=== PATIENT | female | born 1930 | race Caucasian/White ===

== ENCOUNTER 2019-01-30 18:47 | Inpatient (IN) ==
[2019-01-30] MEDS ORDERED: CEFAZOLIN 1000MG 1,000 MG/7.5 ML SYR IV STA (19:03)
[2019-01-30] MEDS ORDERED: DOXYCYCLINE HYCLATE 100 MG CAP PO STA (19:03)
[2019-01-30 19:24] LABS: Basophils # (auto) 0.03 K/uL (0-0.2); Basophils % (auto) 0.4 %; Eosinophils # (auto) 0.23 K/uL (0-0.5); Eosinophils % (auto) 3.1 %; Hematocrit (blood only) 37.9 % (37-47); Hemoglobin 12.1 g/dL (12.0-16.0); Immature Granulocytes # (auto) 0.02 K/uL (0.00-0.02); Immature Granulocytes % (auto) 0.3 %; Lymphocytes % (auto) 22.7 %; Mean Corpuscular Hgb Conc 31.9 g/dL (32-36); Mean Platelet Volume 8.7 fL (7.4-10.4); Monocytes # (auto) 0.91 K/uL (0.11-0.59); Monocytes % (auto) 12.1 %; Neutrophils % (auto) 61.4 %; Platelet Count 245 K/uL (130-400); RDW Coefficient of Variation 14.9 % (11.5-14.5); RDW Standard Deviation 54.5 fL (36.4-46.3); Red Blood Count 3.79 M/uL (4.2-5.4); White Blood Count 7.49 K/uL (4.8-10.8)
--- NOTE | 2019-01-30 19:39 | XRay Report ---
XR elbow RT min 3V routine CLINICAL HISTORY: Right elbow pain. COMPARISON STUDY: None. FINDINGS: No fracture or dislocation. No cortical destruction to suggest an osteomyelitis. No signifi cant elbow effusion. Scattered soft tissue calcifications are noted. There is soft tissue swelling at the olecranon with subcutaneous gas. IMPRESSION: Soft tissue swelling at the olecranon with subcutaneous gas . In the absence of recent t rauma this is concerning for an infection from a gas-forming organism and may represent a necrotizing fasciitis. Surgical consultation recommended. Electronically signed by: Eduardo Hills M.D. 01/30/2019 7:37 PM
[2019-01-30 19:53] LABS: Albumin Globulin Ratio 0.9 (0.9-2); Albumin Level 3.6 gm/dl (3.4-5.0); BUN Creatinine Ratio 18.2 (10-20); Bilirubin,Total 0.6 mg/dl (0.2-1); Calcium 9.4 mg/dl (8.5-10.1); Creatinine Clr Calc Pharmacy 30.9 ml/min; Est GFR (African American) 51.2; Est GFR (Non-African American) 44.1; Globulin 4.2 gm/dl (2.5-4.0); Total Protein 7.8 gm/dl (6.4-8.2)
[2019-01-30 20:21] LABS: Potassium 4.4 mmol/L (3.5-5.1)
[2019-01-30] MEDS ORDERED: PIPERACILLIN/TAZOBACTAM 4.5 GM in DEXTROSE 5% 100 ML IV STA ×2 (21:14→23:16)
[2019-01-30] MEDS ORDERED: VANCOMYCIN HCL 1,500 MG in SODIUM CHLORIDE 0.9% 500 ML IV ONE (21:14)
[2019-01-30] MEDS ORDERED: PIPERACILL/TAZOBAC CONSULT ACTIVE PRN ×2 (21:14→23:16)
[2019-01-30] MEDS ORDERED: VANCOMYCIN CONSULT ACTIVE PRN ×2 (21:14→23:16)
--- NOTE | 2019-01-30 22:30 | Emergency Department Note ---
Entered by Alex Rothman acting as a scribe for Alicja Brantley MD History of Present Illness General Chief complaint: Infection, Wound Stated complaint: RT ELBOW PAIN, POSSIBLY INFECTED Source: patient and family History of Present Illness Provider complaint: Right elbow welling Onset (ago): week(s) Location: upper extremity and right Pain Consistency: + constant Maximum Pain Intensity: 3 Relieved By: + none Associated symptoms: + denies other symptoms (pain) and + other (drainage, redness, swelling); no fever/chills Treatments prior to arrival: none The patient is an 88 year old female who presents to the Emergency Room with complaints of right elbow swelling that began 1 weeks ago. The patient states she fell 4 weeks ago and started noticing some redness and swelling approximately 1 week ago. The patient's family member, who was bed-side adds that the patient was seen at [facility] shortly prior to arrival. She states that the elbow was drained at that time and the fluid was clear/yellow. The patient denies any pain to the elbow and fevers. The patient notes that she has a history of HTN. Home Medications Home Medications Medication Instructions Recorded Confirmed Type Calcium 600 + D(3) 1 cap PO DAILY 01/30/19 01/30/19 History Lactobacillus acidophilus 10,000 mmu cells PO DAILY 01/30/19 01/30/19 History [Acidophilus] PreserVision AREDS 2 tab PO BID 01/30/19 01/30/19 History amlodipine [Norvasc] 10 mg PO DAILY 01/30/19 01/30/19 History aspirin [Aspirin Low Dose] 81 mg PO DAILY 01/30/19 01/30/19 History celecoxib [Celebrex] 100 mg PO DAILY 01/30/19 01/30/19 History esomeprazole magnesium [Nexium] 40 mg PO BID 01/30/19 01/30/19 History fenofibrate 150 mg PO DAILY 01/30/19 01/30/19 History gabapentin 600 mg PO DAILY 01/30/19 01/30/19 History ranitidine HCl 150 mg PO DAILY 01/30/19 01/30/19 History simvastatin 20 mg PO HS 01/30/19 01/30/19 History telmisartan-hydrochlorothiazid 1 tab PO DAILY 01/30/19 01/30/19 History tolterodine 4 mg PO DAILY 01/30/19 01/30/19 History clindamycin HCl 300 mg PO QID 6 Days #48 cap 01/31/19 Rx Allergies Allergy/AdvReac Type Severity Reaction Status Date / Time No Known Allergies Allergy Unverified 01/30/19 19:59 Past Med/Surg History Medical History Hypertension Social History Preferred Language: French Communication Ability: Effective 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 and A total of 10 systems reviewed and were otherwise negative Physical Exam Vital Signs Vital Signs - 24 hr 01/30/19 18:49 01/30/19 22:16 01/30/19 23:41 Temperature 36.6 C 36.5 C Temperature Source Oral Oral Sepsis Recent Fever Within 48 Hours No Sepsis New/Unexplained Change in Mental Status No Sepsis Action Taken by Nursing No Action Required Pulse Rate 84 Pulse Rate [Left Finger] 89 91 H Respiratory Rate 20 16 18 Respiratory Effort / Characteristics Non-Labored Spontaneous Non-Labored Spontaneous Respiratory Depth Normal Normal Respiratory Pattern Regular Regular Blood Pressure 137/79 Blood Pressure [Left Arm] 114/39 L 147/71 H Blood Pressure Mean 98 Blood Pressure Mean [Left Arm] 64 96 Blood Pressure Position [Left Arm] Lying Pulse Oximetry 98 99 95 Oxygen Delivery Method Room Air Room Air 01/31/19 07:25 01/31/19 07:33 01/31/19 14:29 Temperature 36.7 C 36.7 C Temperature Source Oral Sepsis Recent Fever Within 48 Hours Sepsis New/Unexplained Change in Mental Status Sepsis Action Taken by Nursing Pulse Rate Pulse Rate [Left Finger] 84 84 Respiratory Rate 18 18 Respiratory Effort / Characteristics Respiratory Depth Respiratory Pattern Blood Pressure Blood Pressure [Left Arm] 127/58 L 127/58 L Blood Pressure Mean Blood Pressure Mean [Left Arm] 81 Blood Pressure Position [Left Arm] Lying Pulse Oximetry 93 93 Oxygen Delivery Method Room Air Room Air 01/31/19 15:36 Temperature 36.7 C Temperature Source Sepsis Recent Fever Within 48 Hours Sepsis New/Unexplained Change in Mental Status Sepsis Action Taken by Nursing Pulse Rate Pulse Rate [Left Finger] 84 Respiratory Rate 18 Respiratory Effort / Characteristics Respiratory Depth Respiratory Pattern Blood Pressure Blood Pressure [Left Arm] 127/58 L Blood Pressure Mean Blood Pressure Mean [Left Arm] Blood Pressure Position [Left Arm] Pulse Oximetry 93 Oxygen Delivery Method Vital signs reviewed. General: Well-appearing elderly female, in no significant distress. HEENT: No scleral icterus, PERRLA, neck supple. Atraumatic. Cardiovascular: Regular rate and rhythm, no extra sounds. Pulmonary: Clear to auscultation bilaterally, normal work of breathing. Abdomen: Soft, nontender, nondistended, positive bowel sounds. Musculoskeletal: Atraumatic, no peripheral edema. Approximately 12 cm erythematous region on the extensor surface. with a pinpoint region of clear drainage, no pain with ROM, supination and pronation non-tender. Neurologic: Patient awake alert and oriented x 3 Skin: Warm, dry, erythematous right elbow as described above. Course 1856: The patient was evaluated in room C04. A complete history and physical exam was performed. 2026: The patient's CRP are elevated. 2109: [facility] He will evaluate the patient for further management. Administered Medications Discontinued Medications Amlodipine Besylate (Norvasc) 10 mg PO DAILY JOSE Stop: 03/02/19 08:59 Last Admin: 01/31/19 07:55 Dose: 10 mg Documented by: [id number] Doxycycline Hyclate (Vibramycin) 100 mg PO NOW [facility] [[email or web address] Stop: 01/30/19 19:04 Last Admin: 01/30/19 19:30 Dose: 100 mg Documented by: [id number] Fenofibrate (Tricor) 145 mg PO DAILY JOSE Stop: 03/02/19 08:59 Last Admin: 01/31/19 07:57 Dose: 145 mg Documented by: [id number] Gabapentin (Neurontin) 600 mg PO DAILY JOSE Stop: 03/02/19 08:59 Last Admin: 01/31/19 07:56 Dose: 600 mg Documented by: [id number] Hydrochlorothiazide (Hctz) 12.5 mg PO DAILY JOSE Stop: 03/02/19 08:59 Last Admin: 01/31/19 07:54 Dose: 12.5 mg Documented by: [id number] Cefazolin Sodium (Ancef 1000mg) 1,000 mg in 7.5 mls @ 2.5 mls/min IV NOW STA Stop: 01/30/19 19:05 Last Admin: 01/30/19 19:30 Dose: 2.5 mls/min Documented by: [id number] Piperacillin Sod/Tazobactam (Sod 4.5 gm/ Dextrose) 120 mls @ 30 mls/hr IV Q8H STA Stop: 01/31/19 01:13 Last Infusion: 01/31/19 01:11 Dose: 0 mls/hr Documented by: [id number] Admin: 01/30/19 21:57 Dose: 30 mls/hr Documented by: [id number] Vancomycin HCl 1,500 mg/ (Sodium Chloride) 530 mls @ 200 mls/hr IV NOW ONE Stop: 01/30/19 23:52 Last Infusion: 01/31/19 01:07 Dose: 0 mls/hr Documented by: [id number] Admin: 01/30/19 21:57 Dose: 200 mls/hr Documented by: [id number] Clindamycin Phosphate 600 mg/ (Dextrose) 54 mls @ 100 mls/hr IV Q8H [facility] Stop: 02/10/19 00:00 Last Infusion: 01/31/19 09:00 Dose: 0 mls/hr Documented by: [id number] Admin: 01/31/19 08:04 Dose: 100 mls/hr Documented by: [id number] Infusion: 01/31/19 01:41 Dose: 0 mls/hr Documented by: [id number] Admin: 01/31/19 01:08 Dose: 100 mls/hr Documented by: [id number] Sodium Chloride (Nss 1000ml) 1,000 mls @ 75 mls/hr IV .[id number] [facility] Stop: 03/01/19 23:15 Last Infusion: 01/31/19 13:43 Dose: 0 mls/hr Documented by: [id number] Infusion: 01/31/19 06:04 Dose: 75 mls/hr Documented by: [id number] Admin: 01/30/19 23:56 Dose: 75 mls/hr Documented by: [id number] Piperacillin Sod/Tazobactam (Sod 3.375 gm/ Dextrose) 115 mls @ 28.75 mls/hr IV Q8H [facility]; Protocol Stop: 02/10/19 03:59 Last Admin: 01/31/19 11:27 Dose: 28.8 mls/hr Documented by: [id number] Infusion: 01/31/19 08:45 Dose: 0 mls/hr Documented by: [id number] Admin: 01/31/19 04:17 Dose: 28.8 mls/hr Documented by: [id number] Dextrose/Sodium Chloride (D5w And 1/2nss) 1,000 mls @ 50 mls/hr IV .Q20H JOSE Stop: 03/02/19 12:59 Last Admin: 01/31/19 13:41 Dose: 50 mls/hr Documented by: [id number] Lactobacillus Acidophilus (Floranex) 4 tab PO DAILY JOSE Stop: 03/02/19 08:59 Last Admin: 01/31/19 07:54 Dose: 4 tab Documented by: [id number] Miscellaneous (Order Awaiting Action) 1 ea N/A QS JOSE Stop: 03/02/19 07:59 Last Admin: 01/31/19 07:52 Dose: Not Given Documented by: [id number] Multivitamins/Minerals (Caltrate Plus) 1 tab PO DAILY JOSE Stop: 03/02/19 08:59 Last Admin: 01/31/19 07:52 Dose: 1 tab Documented by: [id number] Pantoprazole Sodium (Protonix) 40 mg PO BID JOSE Stop: 03/02/19 08:59 Last Admin: 01/31/19 07:56 Dose: 40 mg Documented by: [id number] Ranitidine HCl (Zantac) 150 mg PO DAILY JOSE Stop: 03/02/19 08:59 Last Admin: 01/31/19 07:57 Dose: 150 mg Documented by: [id number] Telmisartan (Micardis) 80 mg PO DAILY JOSE Stop: 03/02/19 08:59 Last Admin: 01/31/19 07:55 Dose: 80 mg Documented by: [id number] Tolterodine Tartrate (Detrol La) 4 mg PO DAILY [facility] Stop: 03/02/19 08:59 Last Admin: 01/31/19 07:53 Dose: 4 mg Documented by: [id number] Medical Decision Making Differential Diagnosis Differential diagnosis: Etiologies such as cellulitis, abscess, MRSA infection, DVT, necrotizing fasciitis, dermatitis, drug eruption, as well as others were entertained. Medical Records Attestation: I reviewed the patient's medical records. Home Medications Current Medication List: was personally reviewed by me Laboratory Data Attestation: I reviewed the patient's lab results. Result diagrams: 01/31/19 05:11 01/31/19 05:11 Lab Results 01/30/19 01/30/19 01/30/19 Range/Units 19:16 19:16 19:16 WBC 7.49 (4.8-10.8) K/uL RBC 3.79 L (4.2-5.4) M/uL Hgb 12.1 (12.0-16.0) g/dL Hct 37.9 (37-47) % MCV 100.0 (80-100) fL MCH 31.9 (25-34) pg MCHC 31.9 L (32-36) g/dL RDW Std Deviation 54.5 H (36.4-46.3) fL RDW Coeff of Max 14.9 H (11.5-14.5) % Plt Count 245 (130-400) K/uL MPV 8.7 (7.4-10.4) fL Immature Gran % (Auto) 0.3 % Neut % (Auto) 61.4 % Lymph % (Auto) 22.7 % [place] % (Auto) 12.1 % Eos % (Auto) 3.1 % Baso % (Auto) 0.4 % Immature Gran # (Auto) 0.02 (0.00-0.02) K/uL Neut # (Auto) 4.60 (1.4-6.5) K/uL Lymph # (Auto) 1.70 (1.2-3.4) K/uL [place] # (Auto) 0.91 H (0.11-0.59) K/uL Eos # (Auto) 0.23 (0-0.5) K/uL Baso # (Auto) 0.03 (0-0.2) K/uL ESR 49 H (0-21) mm/hr Sodium 139 (136-145) mmol/L Potassium 4.4 (3.5-5.1) mmol/L Chloride 100 (98-107) mmol/L Carbon Dioxide 31 (21-32) mmol/L Anion Gap 8.0 (3-11) BUN 20 H (7-18) mg/dl Creatinine 1.12 (0.6-1.2) mg/dl Est Cr Clr Drug Dosing 30.9 ml/min Est GFR ( Amer) 51.2 Est GFR (Non-Af Amer) 44.1 BUN/Creatinine Ratio 18.2 (10-20) Glucose 94 (70-99) mg/dl Calcium 9.4 (8.5-10.1) mg/dl Magnesium (1.8-2.4) mg/dl Total Bilirubin 0.6 (0.2-1) mg/dl AST 21 (15-37) U/L ALT 19 (12-78) U/L Alkaline Phosphatase 66 (45-117) U/L C-Reactive Protein (0-0.29) mg/dl Total Protein 7.8 (6.4-8.2) gm/dl Albumin 3.6 (3.4-5.0) gm/dl Globulin 4.2 H (2.5-4.0) gm/dl Albumin/Globulin Ratio 0.9 (0.9-2) 01/30/19 01/31/19 01/31/19 Range/Units 19:16 05:11 05:11 WBC 4.97 (4.8-10.8) K/uL RBC 3.07 L (4.2-5.4) M/uL Hgb 9.6 L (12.0-16.0) g/dL Hct 30.0 L (37-47) % MCV 97.7 (80-100) fL MCH 31.3 (25-34) pg MCHC 32.0 (32-36) g/dL RDW Std Deviation 53.3 H (36.4-46.3) fL RDW Coeff of Max 14.9 H (11.5-14.5) % Plt Count 190 (130-400) K/uL MPV 8.8 (7.4-10.4) fL Immature Gran % (Auto) 0.2 % Neut % (Auto) 61.4 % Lymph % (Auto) 22.1 % [place] % (Auto) 10.3 % Eos % (Auto) 5.6 % Baso % (Auto) 0.4 % Immature Gran # (Auto) 0.01 (0.00-0.02) K/uL Neut # (Auto) 3.05 (1.4-6.5) K/uL Lymph # (Auto) 1.10 L (1.2-3.4) K/uL [place] # (Auto) 0.51 (0.11-0.59) K/uL Eos # (Auto) 0.28 (0-0.5) K/uL Baso # (Auto) 0.02 (0-0.2) K/uL ESR (0-21) mm/hr Sodium 138 (136-145) mmol/L Potassium 3.9 (3.5-5.1) mmol/L Chloride 107 (98-107) mmol/L Carbon Dioxide 26 (21-32) mmol/L Anion Gap 5.0 (3-11) BUN 20 H (7-18) mg/dl Creatinine 1.04 (0.6-1.2) mg/dl Est Cr Clr Drug Dosing 33.2 ml/min Est GFR ( Amer) 55.9 Est GFR (Non-Af Amer) 48.3 BUN/Creatinine Ratio 19.2 (10-20) Glucose 129 H (70-99) mg/dl Calcium 8.2 L (8.5-10.1) mg/dl Magnesium 2.4 (1.8-2.4) mg/dl Total Bilirubin (0.2-1) mg/dl AST (15-37) U/L ALT (12-78) U/L Alkaline Phosphatase (45-117) U/L C-Reactive Protein 9.76 H (0-0.29) mg/dl Total Protein (6.4-8.2) gm/dl Albumin (3.4-5.0) gm/dl Globulin (2.5-4.0) gm/dl Albumin/Globulin Ratio (0.9-2) Imaging Data Radiologist's Impression: Radiology results as stated below per my review and th e radiologist's interpretation: XR elbow RT min 3V routine CLINICAL HISTORY: Right elbow pain. COMPARISON STUDY: None. FINDINGS: No fracture or dislocation. No cortical destruction to suggest an osteomyelitis. No significant elbow effusion. Scattered soft tissue calcifications are noted. There is soft tissue swelling at the olecranon with subcutaneous gas. IMPRESSION: Soft tissue swelling at the olecranon with subcutaneous gas . In the absence of recent trauma this is concerning for an infection from a gas- forming organism and may represent a necrotizing fasciitis. Surgical consultation recommended. Electronically signed by: Eduardo Hills M.D. 01/30/2019 7:37 PM Blood Pressure Blood Pressure Findings: Normal blood pressure MDM Narrative This patient was evaluated and appeared to be in no significant distress. IV access was obtained and laboratory work was drawn. Patient has a normal white blood cell count, elevated sed rate and CRP. Patient was initially medicated with IV Ancef and oral doxycycline. X-ray of the right elbow was performed and reveals subcutaneous gas, concerning for necrotizing fasciitis. The patient had a right shoulder replacement 3 weeks ago. Given the benign clinical picture however concerning images, case was discussed with Dr. Lange of orthopedic surgery. There is clinical concern for seeding of the right shoulder as well as the less likely scenario of necrotizing fasciitis. It was decided that expanded antibiotic coverage would be given, IV Zosyn and vancomycin. Observation with internal medicine was requested an orthopedic consultation. Patient was made aware of the plan and agrees. Impression & Plan Cellulitis of right elbow Discharge Plan Visit Data *Final* Discharge Date/Time: 01/30/19 22:49 Chief Complaint: Infection, Wound Stated Complaint: RT ELBOW PAIN, POSSIBLY INFECTED ED Provider: Alicja Brantley Discharge Problem: Cellulitis of right elbow Patient Disposition: Admitted As Inpatient Condition: Good Discharge Instructions Interventions: ED Discharge Assessment Last Done: 01/30/19 22:49 The scribe's documentation has been prepared under my direction and personally reviewed by me in its entirety. I confirm that the note above accurately reflects all work, treatment, procedures, and medical decision making performed by me.
[2019-01-30] MEDS ORDERED: NON-FORMULARY MEDICATION (Diphenhydramine-Acetaminophen [Tylenol Pm Extra Strength] 2 TAB) PO PRN (23:16)
[2019-01-30] MEDS ORDERED: ACETAMINOPHEN 325 MG TAB PO PRN (23:16)
[2019-01-30] MEDS ORDERED: VANCOMYCIN HCL 1,000 MG in SODIUM CHLORIDE 0.9% 250 ML IV SCH (23:16)
[2019-01-30] MEDS ORDERED: SODIUM CHLORIDE 0.9% 1000ML 1,000 ML IV SCH (23:16)
[2019-01-30] MEDS ORDERED: ONDANSETRON INJ 2 MG/ML 2 ML VIAL IV PRN (23:16)
[2019-01-31] MEDS: CLINDAMYCIN 600 MG in DEXTROSE 5% 50 ML IV SCH ×2 (01:08→08:04)
[2019-01-31] MEDS: PIPERACILLIN/TAZOBACTAM 3.375 GM in DEXTROSE 5% 100 ML IV SCH ×2 (04:17→11:27)
[2019-01-31 05:24] LABS: Basophils # (auto) 0.02 K/uL (0-0.2); Basophils % (auto) 0.4 %; Eosinophils # (auto) 0.28 K/uL (0-0.5); Eosinophils % (auto) 5.6 %; Hemoglobin 9.6 g/dL (12.0-16.0); Immature Granulocytes # (auto) 0.01 K/uL (0.00-0.02); Immature Granulocytes % (auto) 0.2 %; Lymphocytes % (auto) 22.1 %; Mean Corpuscular Volume 97.7 fL (80-100); Mean Platelet Volume 8.8 fL (7.4-10.4); Monocytes # (auto) 0.51 K/uL (0.11-0.59); Monocytes % (auto) 10.3 %; Neutrophils # (auto) 3.05 K/uL (1.4-6.5); Neutrophils % (auto) 61.4 %; Platelet Count 190 K/uL (130-400); RDW Coefficient of Variation 14.9 % (11.5-14.5); RDW Standard Deviation 53.3 fL (36.4-46.3); Red Blood Count 3.07 M/uL (4.2-5.4); White Blood Count 4.97 K/uL (4.8-10.8)
[2019-01-31 05:42] LABS: BUN Creatinine Ratio 19.2 (10-20); Calcium 8.2 mg/dl (8.5-10.1); Creatinine Clr Calc Pharmacy 33.2 ml/min; Est GFR (African American) 55.9; Est GFR (Non-African American) 48.3; Magnesium 2.4 mg/dl (1.8-2.4); Potassium 3.9 mmol/L (3.5-5.1)
--- NOTE | 2019-01-31 05:42 | History and Physical Report ---
DATE OF ADMISSION: 01/30/2019 CHIEF COMPLAINT: Right elbow infection. HISTORY OF PRESENT ILLNESS: This is an 88-year-old female with past medical history significant for hypertension, hyperlipidemia and gastroesophageal reflux disease who presents with right elbow infection. The patient is coming from [place] to visit her daughter. She is going to stay whole summer. About 4 weeks ago, she fell on her right elbow. It hurt a little and she did not give much notice to it and 3 weeks ago she had same side right shoulder replacement surgery, which was done in [place] and she came to visit her daughter. For the last few days, her right elbow seems to be getting more swollen, red and more painful and also some drainage coming from it. So, she went to [facility] and they sent her here and here imaging study, an elbow x-ray was done in the Emergency Room which showed probably a soft tissue swelling in the olecranon with subcutaneous gas. In the absence of recent trauma, this is concerning for infection from gas forming organism and may represent necrotizing fasciitis. Surgical consultation was recommended. The Emergency Room talked to the Orthopedics and was advised to keep her n.p.o. after midnight and will be evaluated in the morning.Patient is afebrile with no chills. Denies any other complaints, resting comfortably and hemodynamically stable. No leukocytosis. Denies any headache. No blurred vision. No earache. 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 No headache. No earache. No runny nose. No sore throat. No difficulty swallowing. Appetite is good. Sleeps okay. No chest pain. No shortness of breath. No cough. No nausea. No abdominal pain. Normal bowel and bladder movements. No melena or hematochezia. No hematuria. No swelling of the legs. No rash. Denies any easy bruising or easy bleeding. She ambulates with the help of a walker. ALLERGIES: No known drug allergies. PAST MEDICAL HISTORY: As mentioned above. PAST SURGICAL HISTORY: She has had bilateral knee replacement surgery, right shoulder replacement surgery and tonsillectomy. MEDICATIONS: The patient is on amlodipine 10 mg p.o. daily, ascorbic acid 500 mg p.o. b.i.d., aspirin 81 mg p.o. daily, calcium and vitamin D 1 tablet daily, Celebrex 100 mg p.o. daily, cyanocobalamin B12 250 mcg p.o. daily, Tylenol PM 2 tablets p.o. at bedtime p.r.n., diphenoxylate, atropine 1 tablet p.o. q.i.d., Nexium 40 mg p.o. b.i.d., fenofibrate 150 mg p.o. daily, gabapentin 600 mg p.o. daily, lactobacillus 1 tablet daily, magnesium 600 mg p.o. t.i.d., omega 3 fish oil 1 capsule daily, ranitidine 150 mg p.o. daily, simvastatin 20 mg p.o. q.p.m., telmisartan hydrochlorothiazide 1 tablet daily, tolterodine 4 mg p.o. daily and PreserVision AREDAS 2 tablets p.o. daily. FAMILY HISTORY: Noncontributory. SOCIAL HISTORY: Currently living with her daughter. She is from [place]. REVIEW OF SYMPTOMS: As per HPI. Rest of review of systems negative. PHYSICAL EXAMINATION: GENERAL: The patient is old and frail, not in acute distress. VITAL SIGNS: Temperature 36.6, pulse 84, respiratory rate 20, blood pressure 137/79 and oxygen 98% room air. HEENT: No pallor. No icterus. Pupils are equal, round and reactive to light. NECK: No JVD. No neck masses. No carotid bruits. CARDIOVASCULAR: S1, S2 heard. Regular rate and rhythm. No murmur. No gallop. RESPIRATORY SYSTEM: Normal AP diameter. No accessory muscle use. No wheezing. No crackles. ABDOMEN: Soft. Bowel sounds present. Nontender. No distention. CENTRAL NERVOUS SYSTEM: Cranial nerves II through XII grossly intact. Nonfocal. EXTREMITIES: Right elbow is somewhat swollen and erythematous. LABORATORY DATA: WBC 7.4, hemoglobin 12.1, hematocrit 37.9 and platelets 245. ESR 49. Sodium 139, potassium 4.4, chloride 100, bicarbonate 21, BUN 20, creatinine 1.1, serum glucose 94, calcium 9.4, total bilirubin 0.6, AST 21, ALT 19 and alkaline phosphatase of 66. C-reactive protein 0.76. Elbow x-ray, soft tissue swelling of the olecranon with subcutaneous gas, with absence of recent trauma, this is concerning for infection with gas forming organism and may represent necrotizing fasciitis. Surgical consultation is recommended. ASSESSMENT AND PLAN: This is an 88-year-old female who presents with right elbow infection. 1. Right elbow infection: The patient states she fell 4 weeks ago. She did not notice much about it, but last few days it started getting more swollen and also draining. X-ray showed there is some soft tissue swelling at the olecranon with subcutaneous gas, possible necrotizing fasciitis. Orthopedics was notified, to keep her n.p.o. after midnight for procedure in the a.m. We will treat with empiric antibiotics, I.V. vancomycin, Zosyn, I.V. clindamycin. Follow the cultures and closely monitor. We will get a chest x-ray and electrocardiogram. The patient has no cardiac history, walks with a walker. If the EKG and chest x-ray will be okay, the patient should be at acceptable risk to proceed with any procedure. 2. History of hypertension: We will continue amlodipine and telmisartan hydrochlorothiazide for now. Monitor blood pressure. 3. History of hyperlipidemia: Continue statin. 4. History of gastroesophageal reflux disease: Continue with Nexium and Zantac. 5. Deep venous thrombosis prophylaxis: Sequential compression devices for now. 6. Disposition: Closely monitor on medical floor. Level 1 full code. Physical Therapy and Occupational Therapy prior to discharge. Social Service to help with discharge planning. [facility]
[2019-01-31 07:39] VITALS: BP 127/58; PULSE 84; TEMP 98.1; O2SAT 93
--- NOTE | 2019-01-31 07:51 | XRay Report ---
XR chest 1V portable HISTORY: 88 years-old Female pre op preoperative exam. No acute chest complaints COMPARISON: None available TECHNIQUE: Portable AP view of the chest FINDINGS: Cardiomediastinal and hilar silhouettes are within normal limits. Calcification of the thoracic aorti c arch. No pneumothorax, large pleural effusion or overt pulmonary edema. Mild interstitial coarsenin g, possibly chronic. Multiple remote healed and ununited fractures about the right ribs. Degenerative changes of the spine and left shoulder. Right shoulder total joint arthroplasty. IMPRESSION: No acute process. The above report was generated using voice recognition software. It may contain grammatical, syntax o r spelling errors. Electronically signed by: Kendrick Mcgregor M.D. 01/31/2019 7:50 AM
[2019-01-31] MEDS ORDERED: hydroCHLOROthiazide 25 MG TAB PO SCH (09:00)
[2019-01-31] MEDS ORDERED: MAGNESIUM 600 MG PO SCH (09:00)
[2019-01-31] MEDS ORDERED: LACTOBACILLUS ACIDOPHILUS (FLORANEX) TAB PO SCH (09:00)
[2019-01-31] MEDS ORDERED: TELMISARTAN 40 MG TAB PO SCH (09:00)
[2019-01-31] MEDS ORDERED: CALCIUM 600MG + VIT D 400 IU TAB PO SCH (09:00)
[2019-01-31] MEDS ORDERED: FENOFIBRATE NANOCRYSTALLIZED 145 MG TABLET PO SCH (09:00)
[2019-01-31] MEDS ORDERED: GABAPENTIN 600 MG TAB PO SCH (09:00)
[2019-01-31] MEDS ORDERED: AMLODIPINE BESYLATE 5 MG TAB PO SCH (09:00)
[2019-01-31] MEDS ORDERED: ASCORBIC ACID 500 MG TAB PO SCH (09:00)
[2019-01-31] MEDS ORDERED: TOLTERODINE TARTRATE LA 4 MG CAPCR PO SCH (09:00)
[2019-01-31] MEDS ORDERED: PANTOprazole 40 MG TAB PO SCH (09:00)
[2019-01-31] MEDS ORDERED: D5W AND 1/2NSS 1,000 ML IV SCH (13:00)
--- NOTE | 2019-01-31 14:32 | Orthopedic Consultation ---
Date of Consultation January 31, 2019 Assessment & Plan (1) Olecranon bursitis of right elbow: This point time patient is basically asymptomatic this is a nonemergent or even urgent problem. The best course of action is to simply observe and we could always excise the bursa at any time. Really no need for hospital admission for this. I recommend she follow-up with us in the office in anywhere from 2-3 days for another evaluation if he gets worse we can always remove it electively as an outpatient procedure. The patient and the daughter who are present very happy with the conversation and thats the plan they would like to proceed with. Thank you for the consultation. History of Present Illness Reason for Consultation: Right elbow evaluation Attending Physician: Brayan Keen MD History of Present Illness Pleasant 88-year-old female who bumped her elbow about a month ago has been having some off-and-on swelling of her right elbow and has never been painful the last 10-12 days had a small area that open had some drainage off and on but has never had any pain fevers or chills. She had some slight pink coloration to but never had fire engine red of the arm or the elbow itself. For whatever reason she was admitted to the hospital for this problem and we are consulted for right elbow evaluation. Allergies Allergy/AdvReac Type Severity Reaction Status Date / Time No Known Allergies Allergy Unverified 01/30/19 19:59 Home Medications Home Medications Medication Instructions Recorded Confirmed Type Lactobacillus acidophilus 10,000 mmu cells PO DAILY 01/30/19 01/30/19 History [Acidophilus] amlodipine [Norvasc] 10 mg PO DAILY 01/30/19 01/30/19 History aspirin [Aspirin Low Dose] 81 mg PO DAILY 01/30/19 01/30/19 History calcium carbonate-vitamin D3 1 cap PO DAILY 01/30/19 01/30/19 History [Calcium 600 + D(3)] celecoxib [Celebrex] 100 mg PO DAILY 01/30/19 01/30/19 History esomeprazole magnesium [Nexium] 40 mg PO BID 01/30/19 01/30/19 History fenofibrate 150 mg PO DAILY 01/30/19 01/30/19 History gabapentin 600 mg PO DAILY 01/30/19 01/30/19 History ranitidine HCl 150 mg PO DAILY 01/30/19 01/30/19 History simvastatin 20 mg PO HS 01/30/19 01/30/19 History telmisartan-hydrochlorothiazid 1 tab PO DAILY 01/30/19 01/30/19 History tolterodine 4 mg PO DAILY 01/30/19 01/30/19 History vitamins A,C,Z-[id number] 2 tab PO BID 01/30/19 01/30/19 History [PreserVision AREDS] Patient History Medical History Hypertension Social History Preferred Language: Kazakh Communication Ability: Effective Die Engraver Required: No Beliefs That Will Affect Care: None marital status: / Current Living Situation: Family Current Living Situation Comment: son Feels Safe at Home: Yes Safety Concerns: Feels Safe At This Time Smoking Status: Former smoker Hx Alcohol Use: Yes Alcohol type: wine Hx Substance Use: No Physical Exam Musculoskeletal: Right elbow has full range of motion she has no erythema present at this point time she does have a small pinhole area present of the olecranon bursa. Results & Data Vital Signs (Past 12 Hours) Vital Signs Temp Pulse Resp BP Pulse Ox 01/31/19 07:25 36.7 C 84 18 127/58 L 93
--- NOTE | 2019-01-31 15:16 | Hospitalist Progress Note ---
Date of Service January 31, 2019 Assessment & Plan (1) Olecranon bursitis of right elbow: Olecranon bursitis of right elbow possible right elbow infection(local infection of the skin and subcutaneous tissue) Patient has discharge instructions to go to orthopedic clinic on Thursday02/02/19 for most likely diagnosis as Olecranon bursitis of right elbow and orthopedic service recommended hospital discharge -Patient was given IV antibiotics of Vancomycin, Zosyn, clindamycin in the hospital because of concern for concern of Right elbow infection (local infection of the skin and subcutaneous tissue) X-ray showed there is some soft tissue swelling at the olecranon with subcutaneous gas Patient does not have fever or elevated white blood cell count to suggest a necrotizing fasciitis, patient should take clindamycin 300 mg four times a day for 6 more days starting on 02/01/19 in case there is an underlying infection and clindamycin has MRSA coverage -Patient should establish with a primary care doctor. Patient still has pending blood culture results and preliminary wound culture of Staph (but Staph may also be part of normal skin nellie) -Patient is stable medically for hospital discharge and outpatient follow up -Patient's family provided contact numbers as [phone] and [phone] in case any pertinent culture results that may change medical management of left elbow hypertension -blood pressure controlled at this time -continue amlodipine and telmisartan- hydrochlorothiazide as outpatient History of hyperlipidemia -Continue statin History of gastroesophageal reflux disease -Continue with Nexium and Zantac. Discharge diagnosis Olecranon bursitis of right elbow possible right elbow infection(local infection of the skin and subcutaneous tissue) Hypertension Subjective Patient's right elbow with fluctuance. She was seen by orthopedics and no recommendations for drainage to be done in the hospital. Patient denies fever. no chills. no vomiting. no abdomen pain. tolerating diet Physical Exam Constitutional: WD/WN, vitals as above Eyes: PERRL, conjunctivae normal, anicteric sclerae EOM intact bilaterally ENMT: external ear and nose normal, oropharynx normal Ears: + hearing impairment Neck: trachea midline, no thyromegaly normal visual inspection Respiratory: normal respiratory effort, lungs clear to auscultation Cardiovascular: RRR, no murmur, no edema Gastrointestinal (Abdomen): normal bowel sounds, soft, nontender, no hepatosplenomegaly Musculoskeletal: Extremities: + elbow/forearm abnormality (right elbow fluctuance, no acute drainage.) Neurologic: PERRL, EOMI, accommodation nl, no face palsy, no dysarthria CN's II-XI intact bilaterally Psychiatric: A+Ox3, euthymic affect Results & Data Vital Signs (Past 12 Hours) Vital Signs Temp Pulse Resp BP Pulse Ox 01/31/19 14:29 36.7 C 84 18 127/58 L 93 01/31/19 07:25 36.7 C 84 18 127/58 L 93
--- NOTE | 2019-01-31 15:44 | Discharge Summary ---
Date of Service January 31, 2019 Admission HPI Per Admitting Provider CHIEF COMPLAINT: Right elbow infection. HISTORY OF PRESENT ILLNESS: This is an 88-year-old female with past medical history significant for hypertension, hyperlipidemia and gastroesophageal reflux disease who presents with right elbow infection. The patient is coming from [place] to visit her daughter. She is going to stay whole summer. About 4 weeks ago, she fell on her right elbow. It hurt a little and she did not give much notice to it and 3 weeks ago she had same side right shoulder replacement surgery, which was done in [place] and she came to visit her daughter. For the last few days, her right elbow seems to be getting more swollen, red and more painful and also some drainage coming from it. So, she went to [facility] and they sent her here and here imaging study, an elbow x-ray was done in the Emergency Room which showed probably a soft tissue swelling in the olecranon with subcutaneous gas. In the absence of recent trauma, this is concerning for infection from gas forming organism and may represent necrotizing fasciitis. Surgical consultation was recommended. The Emergency Room talked to the Orthopedics and was advised to keep her n.p.o. after midnight and will be evaluated in the morning.Patient is afebrile with no chills. Denies any other complaints, resting comfortably and hemodynamically stable. No leukocytosis. Denies any headache. No blurred vision. No earache. 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 No headache. No earache. No runny nose. No sore throat. No difficulty swallowing. Appetite is good. Sleeps okay. No chest pain. No shortness of breath. No cough. No nausea. No abdominal pain. Normal bowel and bladder movements. No melena or hematochezia. No hematuria. No swelling of the legs. No rash. Denies any easy bruising or easy bleeding. She ambulates with the help of a walker. Admission Exam Per Admitting Provider GENERAL: The patient is old and frail, not in acute distress. VITAL SIGNS: Temperature 36.6, pulse 84, respiratory rate 20, blood pressure 137/79 and oxygen 98% room air. HEENT: No pallor. No icterus. Pupils are equal, round and reactive to light. NECK: No JVD. No neck masses. No carotid bruits. CARDIOVASCULAR: S1, S2 heard. Regular rate and rhythm. No murmur. No gallop. RESPIRATORY SYSTEM: Normal AP diameter. No accessory muscle use. No wheezing. No crackles. ABDOMEN: Soft. Bowel sounds present. Nontender. No distention. CENTRAL NERVOUS SYSTEM: Cranial nerves II through XII grossly intact. Nonfocal. EXTREMITIES: Right elbow is somewhat swollen and erythematous. Principal Diagnosis Olecranon bursitis of right elbow possible right elbow infection(local infection of the skin and subcutaneous tissue) Hypertension Discharge Exam Constitutional WD/WN, vitals as above Eyes PERRL, conjunctivae normal, anicteric sclerae EOM intact bilaterally ENMT external ear and nose normal, oropharynx normal Neck trachea midline, no thyromegaly normal visual inspection Respiratory normal respiratory effort, lungs clear to auscultation Cardiovascular RRR, no murmur, no edema Gastrointestinal (Abdomen) normal bowel sounds, soft, nontender, no hepatosplenomegaly Musculoskeletal Extremities: + elbow/forearm abnormality (right elbow fluctuance, no acute drainage.) Neurologic PERRL, EOMI, accommodation nl, no face palsy, no dysarthria CN's II-XI intact bilaterally Psychiatric A+Ox3, euthymic affect Discharge Data Allergies Allergy/AdvReac Type Severity Reaction Status Date / Time No Known Allergies Allergy Unverified 01/30/19 19:59 Consultations 01/30/19 21:12 Consult Orthopedic Surgery Stat ED Decision to Admit Stat 01/30/19 23:16 Consult Case Management - Discharge Planning Routine 01/30/19 23:32 Consult Orthopedic Surgery Routine Hospital Course (1) Olecranon bursitis of right elbow: Olecranon bursitis of right elbow possible right elbow infection(local infection of the skin and subcutaneous tissue) Patient has discharge instructions to go to orthopedic clinic on Thursday02/02/19 for most likely diagnosis as Olecranon bursitis of right elbow and orthopedic service recommended hospital discharge -Patient was given IV antibiotics of Vancomycin, Zosyn, clindamycin in the hospital because of concern for concern of Right elbow infection (local infection of the skin and subcutaneous tissue) X-ray showed there is some soft tissue swelling at the olecranon with subcutaneous gas Patient does not have fever or elevated white blood cell count to suggest a necrotizing fasciitis, patient should take clindamycin 300 mg four times a day for 6 more days starting on 02/01/19 in case there is an underlying infection and clindamycin has MRSA coverage -Patient should establish with a primary care doctor. Patient still has pending blood culture results and preliminary wound culture of Staph (but Staph may also be part of normal skin nellie) -Patient is stable medically for hospital discharge and outpatient follow up -Patient's family provided contact numbers as [phone] and [phone] in case any pertinent culture results that may change medical management of left elbow hypertension -blood pressure controlled at this time -continue amlodipine and telmisartan- hydrochlorothiazide as outpatient History of hyperlipidemia -Continue statin History of gastroesophageal reflux disease -Continue with Nexium and Zantac. Discharge diagnosis Olecranon bursitis of right elbow possible right elbow infection(local infection of the skin and subcutaneous tissue) Hypertension Total Time Total Time Spent Total Time Spent (In Minutes): 40 minutes Total Time Includes: Examination of the Patient, Discharge Planning, Medication Reconciliation and Communication With Other Providers Discharge Plan Discharge Items Patient Disposition: Home - Self-Care Reason For Visit: RIGHT ELBOW INFECTION Discharge Diagnosis: possible right elbow infection(local infection of the skin and subcutaneous tissue), Olecranon bursitis of right elbow, Hypertension Condition: Good Discharge Goals: Improve disease control Activity: Resume your previous activity Non-emergency contact: Primary Care Provider and Surgeon Call non-emergency contact if: you have any medication questions Follow-up/Referrals: PCP,NO [Primary Care Provider] - Diet: Regular Addtl Provider Instructions: Patient has discharge instructions to go to orthopedic clinic on Thursday02/02/19 for most likely diagnosis as Olecranon bursitis of right elbow and orthopedic service recommended hospital discharge Patient was given IV antibiotics of Vancomycin, Zosyn, clindamycin in the hospital because of concern for concern of Right elbow infection (local infection of the skin and subcutaneous tissue) X-ray showed there is some soft tissue swelling at the olecranon with subcutaneous gas Patient does not have fever or elevated white blood cell count to suggest a necrotizing fasciitis, patient should take clindamycin 300 mg four times a day for 6 more days starting on 02/01/19 in case there is an underlying infection and clindamycin has MRSA coverage Patient should establish with a primary care doctor. Patient still has pending blood culture results and preliminary wound culture of Staph (but Staph may also be part of normal skin nellie) Patient is stable medically for hospital discharge and outpatient follow up Patient's family provided contact numbers as [phone] and [phone] in case any pertinent culture results that may change medical management of left elbow Prescriptions: New clindamycin HCl 150 mg Capsule 300 mg PO QID 6 Days Qty: 48 RF: 0 Continued gabapentin 600 mg tablet 600 mg PO DAILY RF: 0 tolterodine 4 mg capsule,extended release 24hr 4 mg PO DAILY RF: 0 aspirin [Aspirin Low Dose] 81 mg Tablet,Delayed Release (Dr/Ec) 81 mg PO DAILY RF: 0 amlodipine [Norvasc] 10 mg Tablet 10 mg PO DAILY RF: 0 simvastatin 20 mg Tablet 20 mg PO HS RF: 0 telmisartan-hydrochlorothiazid 80-12.5 mg tablet 1 tab PO DAILY RF: 0 ranitidine HCl 150 mg Capsule 150 mg PO DAILY RF: 0 Lactobacillus acidophilus [Acidophilus] Capsule 10,000 mmu cells PO DAILY RF: 0 celecoxib [Celebrex] 100 mg Capsule 100 mg PO DAILY RF: 0 esomeprazole magnesium [Nexium] 20 mg Capsule,Delayed Release(Dr/Ec) 40 mg PO BID RF: 0 Calcium 600 + D(3) 600 mg calcium- 200 unit Capsule 1 cap PO DAILY RF: 0 fenofibrate 150 mg Capsule 150 mg PO DAILY RF: 0 PreserVision AREDS [id number],[id number] Tablet 2 tab PO BID RF: 0 Stand-Alone Forms: [facility] Discharge Orders: Discharge Order (Routine); Ordered 01/31/19 Ordered By: Brayan Keen Admission Data Admit Date/Time: 01/30/19 21:50 Attending Provider: Brayan Keen Admit Provider: Christiano Dong Primary Care Provider: PCP,NO Other Providers: Jay Lange Rajendra P Service: Surgical Services Other Interventions: Discharge Summary Assessment (RN) Last Done: 01/31/19 15:36
[2019-01-31] MEDS ORDERED: VANCOMYCIN HCL 1,000 MG in SODIUM CHLORIDE 0.9% 250 ML IV SCH (18:00)
[2019-01-31] MEDS ORDERED: SIMVASTATIN 20 MG TAB PO SCH (21:00)
[2019-02-01] MEDS ORDERED: CLINDAMYCIN HCL 150 MG CAP PO SCH (09:00)
[2019-02-02] MEDS ORDERED: VANCOMYCIN TROUGH ONE (17:30)
== END 2019-01-31 16:12 | disposition home or self-care (01) | DRG 558 ==
LOC: ED 18:47 → 3W 21:50
DX: Z79.899 Other long term (current) drug therapy; Z79.82 Long term (current) use of aspirin; I10 Essential (primary) hypertension; M70.21 Olecranon bursitis, right elbow; E78.5 Hyperlipidemia, unspecified; K21.9 Gastro-esophageal reflux disease without esophagitis; Z96.611 Presence of right artificial shoulder joint